=== PATIENT | male | born 1990 | race African-American/Black ===

== ENCOUNTER 2016-08-22 08:09 | Emergency (ER) | payer OTHER ==
[~2016-08-22] VITALS: Ht 175.3 cm; Wt 121.1 kg
[2016-08-22] MEDS ORDERED: ASPIRIN 81 MG TAB.CHEW PO ONE (08:45)
--- NOTE | 2016-08-22 08:45 | PHYS DOC ---
Adult General Chief Complaint Chief Complaint: CHEST PAIN HPI HPI Patient is a 25 year old male reports emergency room with complaint of chest pain that began at approximately 5 AM this morning. Patient states that he woke him up out of sleep. He denies any shortness of breath, epigastric pain, nausea vomiting. He denies any radiation of pain to his left shoulder to his neck. He does state that his left arm was tingling. It was not clear whether he was lying on his left side or not. Patient states that the pain began to resolve over approximately 20 minutes and is been totally pain-free since 6:15 this morning. Patient denies any personal history of heart or lung disease. He denies any history of previous pneumothorax or chest wall injury. He denies any history of hypertension, diabetes, cholesterol. He denies being a smoker. Patient denies any history of coagulopathies, PEs or DVTs. Patient denies any family history of heart disease at or before the age of 50 in primary relatives. Review of Systems Review of Systems Constitutional: Denies fever or chills [] Eyes: Denies change in visual acuity, redness, or eye pain [] HENT: Denies nasal congestion or sore throat [] Respiratory: Denies cough or shortness of breath [] Cardiovascular: No additional information not addressed in HPI [] GI: Denies abdominal pain, nausea, vomiting, bloody stools or diarrhea [] : Denies dysuria or hematuria [] Musculoskeletal: Denies back pain or joint pain [] Integument: Denies rash or skin lesions [] Neurologic: Denies headache, focal weakness or sensory changes [] Endocrine: Denies polyuria or polydipsia [] Current Medications Current Medications Current Medications Medications (Trade) Dose Ordered Sig/[facility]ly [facility] Start Time Stop Time Status Last Admin Dose Admin Aspirin (Children'S Aspirin) 324 mg 1X ONCE 08/22/16 08:45 08/22/16 09:02 DC 08/22/16 09:07 324 MG Allergies Allergies Allergies Coded Allergies Type Severity Reaction Last Updated Verified No Known Drug Allergies 08/22/16 No Physical Exam Physical Exam Constitutional: Well developed, well nourished, no acute distress, non-toxic appearance. Patient reports he is pain-free upon initial evaluation at 08:30. HENT: Normocephalic, atraumatic, bilateral external ears normal, oropharynx moist, no oral exudates, nose normal. [] Eyes: PERRLA, EOMI, conjunctiva normal, no discharge. [] Neck: Normal range of motion, no tenderness, supple, no stridor. [] Cardiovascular:Heart rate 74 with regular rhythm, no murmur. There is no JVD. PMI is not displaced. There is no peripheral edema. Lungs & Thorax: Bilateral breath sounds clear to auscultation Abdomen: Bowel sounds normal, soft, no tenderness, no masses, no pulsatile masses. [] Skin: Warm, dry, no erythema, no rash. [] Back: No tenderness, no CVA tenderness. [] Extremities: No tenderness, no cyanosis, no clubbing, ROM intact, no edema. Neurologic: Alert and oriented X 3, normal motor function, normal sensory function, no focal deficits noted. [] Psychologic: Affect normal, judgement normal, mood normal. [] Current Patient Data Vital Signs Vital Signs Date Time Temp Pulse Resp B/P Pulse Ox O2 Delivery O2 Flow Rate FiO2 08/22/16 08:12 98.1 67 23 133/66 99 Room Air 98.1 Lab Values Laboratory Tests Test 08/22/16 09:15 White Blood Count 4.1x10^3/uL (4.0-11.0) Red Blood Count 5.57x10^6/uL (4.30-5.70) Hemoglobin 14.8g/dL (13.0-17.5) Hematocrit 44.9% (39.0-53.0) Mean Corpuscular Volume 81fL (79-100) Mean Corpuscular Hemoglobin 27pg (25-35) Mean Corpuscular Hemoglobin Concent 33g/dL (31-37) Red Cell Distribution Width 14.6% (11.5-14.5) H Platelet Count 219x10^3/uL (140-400) Neutrophils (%) (Auto) 57% (31-73) Lymphocytes (%) (Auto) 27% (24-48) Monocytes (%) (Auto) 11% (0-9) H Eosinophils (%) (Auto) 4% (0-3) H Basophils (%) (Auto) 1% (0-3) Neutrophils # (Auto) 2.3x10^3uL (1.8-7.7) Lymphocytes # (Auto) 1.1x10^3/uL (1.0-4.8) Monocytes # (Auto) 0.5x10^3/uL (0.0-1.1) Eosinophils # (Auto) 0.2x10^3/uL (0.0-0.7) Basophils # (Auto) 0.0x10^3/uL (0.0-0.2) Sodium Level 140mmol/L (136-145) Potassium Level 4.1mmol/L (3.5-5.1) Chloride Level 103mmol/L (98-107) Carbon Dioxide Level 28mmol/L (21-32) Anion Gap 9 (6-14) Blood Urea Nitrogen 16mg/dL (8-26) Creatinine 1.1mg/dL (0.7-1.3) Estimated GFR (Cockcroft-Gault) 97.9 Glucose Level 85mg/dL (70-99) Calcium Level 9.5mg/dL (8.5-10.1) Magnesium Level 1.9mg/dL (1.8-2.4) Total Bilirubin 0.5mg/dL (0.2-1.0) Direct Bilirubin 0.1mg/dL (0.0-0.2) Aspartate Amino Transferase (AST) 28U/L (15-37) Alanine Aminotransferase (ALT) 55U/L (16-63) Alkaline Phosphatase 84U/L (46-116) Creatine Kinase 416U/L (39-308) H Creatine Kinase MB (Mass) 1.2ng/mL (0.0-3.6) Creatine Kinase MB Relative Index 0.3% (0-4) Troponin I Quantitative < 0.017ng/mL (0.000-0.055) Total Protein 7.9g/dL (6.4-8.2) Albumin 4.0g/dL (3.4-5.0) Lipase 128U/L (73-393) Laboratory Tests 08/22/16 09:15 Laboratory Tests 08/22/16 09:15 EKG EKG Twelve-lead EKG was performed at 824. Patient is a normal sinus rhythm with rate of 60 bpm. MO interval 0 192 ms with a QRS christianity of 102 ms with a QT duration 398 ms. There is no [address] elevation or depression. There is no evidence of dysrhythmia or bundle branch block. Radiology/Procedures Radiology/Procedures Portable chest x-ray was performed and interpreted by the radiologist. There is no evidence of acute thoracic process. Course & Med Decision Making Course & Med Decision Making Patient's had an uncomplicated stay here in the emergency department and his been pain-free during his stay. Patient is 25 years old without any comorbid risk factors for coronary artery disease. I discussed his test results with him. I answered all of his questions to his satisfaction. I did advise the patient that he needs to establish a primary care doctor which to follow-up. Patient states that he will do so. Dragon Disclaimer Dragon Disclaimer This electronic medical record was generated, in whole or in part, using a voice recognition dictation system. Departure Departure Impression: Primary Impression: Chest pain Disposition: 01 HOME, SELF-CARE Condition: GOOD Patient Instructions: Chest Pain (Nonspecific), [id number] Additional Instructions: 1. There are many causes for chest pain. Upon today's evaluation, there is no evidence of this being cardiac, pulmonary or vascular in origin. 2. You are safe to go home. 3. It is important for you to establish an appointment with a primary care doctor. A pamphlet has been provided to you with a list of primary care doctor' s offices. Be sure to call this afternoon or Thursday to establish a primary care doctor. 4. Review the discharge paperwork provided for self-care and reasons to return to the emergency department. MIRIAM PERALTA Aug 22, 2016 08:45
--- NOTE | 2016-08-22 08:56 | EKG ---
[facility] [address] [place] [address] Test Date: 2016-08-22 Test Time: 08:24:52 Pat Name: ROSI MODI Department: Room: Gender: [employer]gr[employer] Location Manager: : 1990 Requested By: MIRIAM PERALTA Order Number: [id number] Reading MD: Bonnie Crowder Measurements Intervals [place] Rate: 68 P: 56 GA: 192 QRS: 26 QRSD: 102 T: 36 QT: 370 QTc: 398 Interpretive Statements SINUS RHYTHM NORMAL EKG RI6.01 Unconfirmed report No previous ECG available for comparison Electronically Signed On 08-24-2016 20:14:43 [employer] by Bonnie Crowder
--- NOTE | 2016-08-22 09:12 | RAD ---
Chest, 2 views, 08/22/2016: History: Chest and epigastric pain The heart size and pulmonary vascularity are normal. The lungs are clear. There is no evidence of pleural fluid. There is a minimal thoracic scoliosis. IMPRESSION: No acute cardiopulmonary abnormality is detected.
[2016-08-22 09:29] LABS: BASO % 1 % (0-3); EOS % 4 % (0-3); HEMATOCRIT 44.9 % (39.0-53.0); HEMOGLOBIN 14.8 g/dL (13.0-17.5); LYMPH # 1.1 x10^3/uL (1.0-4.8); LYMPH % 27 % (24-48); MEAN CORPUSCULAR HEMOGLOBIN 27 pg (25-35); MEAN CORPUSCULAR HGB CONC 33 g/dL (31-37); MEAN CORPUSCULAR VOLUME 81 fL (79-100); MONO % 11 % (0-9); NEUT % 57 % (31-73); PLATELET COUNT 219 x10^3/uL (140-400); RED BLOOD COUNT 5.57 x10^6/uL (4.30-5.70); RED CELL DISTRIBUTION WIDTH 14.6 % (11.5-14.5); WHITE BLOOD COUNT 4.1 x10^3/uL (4.0-11.0)
[2016-08-22 09:55] LABS: CALCIUM 9.5 mg/dL (8.5-10.1); CREATININE 1.1 mg/dL (0.7-1.3); GFR 97.9; POTASSIUM 4.1 mmol/L (3.5-5.1)
[2016-08-22 09:59] LABS: DIRECT BILIRUBIN 0.1 mg/dL (0.0-0.2); MAGNESIUM 1.9 mg/dL (1.8-2.4); TOTAL BILIRUBIN 0.5 mg/dL (0.2-1.0); TOTAL PROTEIN 7.9 g/dL (6.4-8.2)
[2016-08-22 10:10] LABS: CKMB INDEX 0.3 % (0-4); CKMB MASS 1.2 ng/mL (0.0-3.6)
[2016-08-22 10:33] VITALS: BP 117/74
== END 2016-08-22 10:50 | disposition home or self-care (01) ==
LOC: ER 08:09
DX: R07.89 Other chest pain (principal); R20.2 Paresthesia of skin
CPT/HCPCS: 36415; 71020; 80048; 80076; 82550; 82553; 83690; 83735; 84484; 85027; 93005; 99285-25